=== PATIENT | male | born 1950 | race Caucasian/White ===

== ENCOUNTER 2020-03-06 19:37 | Emergency (ER) | payer OTHER, BC ==
[~2020-03-06] VITALS: Ht 175.3 cm; Wt 92.7 kg
[2020-03-06 20:06] VITALS: BP 120/64; Ht 175.3 cm; Wt 92.7 kg
== END 2020-03-07 00:39 | disposition home or self-care (01) ==
LOC: ED 19:37
DX: L03.113 Cellulitis of right upper limb (principal); W55.01XA Bitten by cat, initial encounter; Y93.89 Activity, other specified; Y92.89 Other specified places as the place of occurrence of the external cause; Y99.8 Other external cause status
CPT/HCPCS: 82962